=== PATIENT | female | born 1975 | race Caucasian/White ===

== ENCOUNTER → 2017-05-20 | Outpatient (CLI) | payer MEDICAID | END | disposition home or self-care (01) | LOC: RAD 14:37 | PROVIDERS: ATTEND Internal Medicine | DX: M25.532 Pain in left wrist (principal); M79.632 Pain in left forearm; M79.642 Pain in left hand; M79.641 Pain in right hand | CPT/HCPCS: 77077 ==

== ENCOUNTER → 2017-06-13 | Outpatient (CLI) | payer MEDICAID | END | disposition home or self-care (01) | LOC: CFH 13:28 | PROVIDERS: ATTEND Internal Medicine Endocrinology, Diabetes & Metabolism | DX: Z12.31 Encounter for screening mammogram for malignant neoplasm of breast (principal) | CPT/HCPCS: G0202 ==